=== PATIENT | male | born 1950 | race Caucasian/White ===

== ENCOUNTER 2024-09-12 08:24 | Outpatient (CLI) | payer OTHER, SELFPAY ==
[2024-09-12 09:31] LABS: Appearance Urine Clear (Clear)
[2024-09-12 09:56] LABS: Albumin* 4.5 g/dL (3.3-5.0); Chloride* 109 mmol/L (96-114); Potassium* 4.0 mmol/L (3.6-5.1); Sodium* 143 mmol/L (135-149)
[2024-09-12 09:59] LABS: Alanine Aminotransferase* 20 U/L (4-50); Alkaline Phosphatase* 83 U/L (40-150); Anion Gap 7 mEq/L (7-15); Aspartate Amino Transferase* 28 U/L (12-35); Bilirubin Total* 0.7 mg/dL (0.1-1.5); Blood Urea Nitrogen* 20 mg/dL (7-30); Carbon Dioxide* 27 mmol/L (20-32); Creatinine* 1.1 mg/dL (0.5-1.5); Estimated Glomerular Filt Rate 70 ml/min; Total Protein* 7.1 g/dL (6.0-8.3)
[2024-09-12 10:00] LABS: Calcium* 9.6 mg/dL (8.4-10.6); Glucose* 119 mg/dL (60-115)
== END 2024-09-12 08:25 | disposition home or self-care (01) ==
LOC: RAD 08:30
PROVIDERS: Visit Provider Chiropractor
DX: R07.9 Chest pain, unspecified (principal)
CPT/HCPCS: 36415; 80053; 81003; 93306